=== PATIENT | male | born 2000 | race Caucasian/White ===

== ENCOUNTER 2018-05-30 11:06 | Emergency (ER) | payer SELFPAY ==
[~2018-05-30] VITALS: Ht 177.8 cm; Wt 92.5 kg
[2018-05-30] MEDS ORDERED: ONDANSETRON ODT 4 MG TAB.RAPDIS ONE (12:02)
--- NOTE | 2018-05-30 12:18 | PHYS DOC ---
Past History Past Medical History: No Pertinent History Past Surgical History: Other Alcohol Use: None Drug Use: None Adult General Chief Complaint Chief Complaint: LACERATION/AVULSION HPI HPI 18-year-old male presents with right leg laceration. The patient was working and carrying a piece of metal when it caught on the doorway to see the metal and lacerated his right lateral leg. The patient noticed that it was deep enough to need stitches. It is 6 cm in length and linear. Patient denies any other injuries. His last tetanus was 2012. Review of Systems Review of Systems Constitutional: Denies fever or chills [] Eyes: Denies change in visual acuity, redness, or eye pain [] HENT: Denies nasal congestion or sore throat [] Respiratory: Denies cough or shortness of breath [] Cardiovascular: No additional information not addressed in HPI [] GI: Denies abdominal pain, nausea, vomiting, bloody stools or diarrhea [] : Denies dysuria or hematuria [] Musculoskeletal: Denies back pain or joint pain [] Integument: Laceration[] Neurologic: Denies headache, focal weakness or sensory changes [] Endocrine: Denies polyuria or polydipsia [] All other systems were reviewed and found to be within normal limits, except as documented in this note. Current Medications Current Medications Current Medications Medications (Trade) Dose Ordered Sig/Fletcher Start Time Stop Time Status Last Admin Dose Admin Diphtheria/ Tetanus/Acell Pertussis (Boostrix) 0.5 ml ONCE ONCE 05/30/18 12:30 05/30/18 12:31 Ondansetron HCl (Zofran Odt) 4 mg 1X ONCE 05/30/18 12:30 05/30/18 12:31 Allergies Allergies Allergies Coded Allergies Type Severity Reaction Last Updated Verified No Known Drug Allergies 05/30/18 No Physical Exam Physical Exam Constitutional: Well developed, well nourished, no acute distress, non-toxic appearance. [] HENT: Normocephalic, atraumatic, bilateral external ears normal, oropharynx moist, no oral exudates, nose normal. [] Eyes: PERRLA, EOMI, conjunctiva normal, no discharge. [] Neck: Normal range of motion, no tenderness, supple, no stridor. [] Cardiovascular:Heart rate regular rhythm, no murmur [] Lungs & Thorax: Bilateral breath sounds clear to auscultation [] Abdomen: Bowel sounds normal, soft, no tenderness, no masses, no pulsatile masses. [] Skin: 6 cm linear laceration of the lateral right leg[] Back: No tenderness, no CVA tenderness. [] Extremities: No tenderness, no cyanosis, no clubbing, ROM intact, no edema. [] Neurologic: Alert and oriented X 3, normal motor function, normal sensory function, no focal deficits noted. [] Psychologic: Affect normal, judgement normal, mood normal. [] Current Patient Data Vital Signs Vital Signs Date Time Temp Pulse Resp B/P (MAP) Pulse Ox O2 Delivery O2 Flow Rate FiO2 05/30/18 11:15 97.8 111 22 95 Room Air EKG EKG [] Radiology/Procedures Radiology/Procedures [] Course & Med Decision Making Course & Med Decision Making Pertinent Labs and Imaging studies reviewed. (See chart for details) Was able to repair the patient's laceration. See laceration note for more details. He was given a tetanus shot in the ED. He is stable for discharge at this time. [] Dragon Disclaimer Dragon Disclaimer This electronic medical record was generated, in whole or in part, using a voice recognition dictation system. Laceration Repair Lac Repair Indication: []6 cm linear laceration of the right lateral leg. Procedure: I obtained verbal consent from the patient to repair his laceration with sutures. There was thoroughly cleansed with saline. No foreign bodies were found. The area was numbed with 1% lidocaine with epinephrine. A total of 3 mL was used. Once good anesthesia was achieved I repaired the laceration with 5 3- 0 Ethilon sutures in an interrupted fashion. There is good skin approximation. Bleeding was controlled. Wound was covered with a clean dry dressing. Total repaired wound length: [6 cm. Other Items: [None The patient tolerated the procedure well. Complications: [None. Departure Departure: Impression: Primary Impression: Laceration of right lower extremity Disposition: 01 HOME, SELF-CARE Condition: STABLE Referrals: PCP,NO (PCP) Patient Instructions: Laceration Care, Adult, [id number] Problem Qualifiers Primary Impression: Laceration of right lower extremity Encounter type: initial encounter Qualified Codes: S81.811A - Laceration without foreign body, right lower leg, initial encounter EDEL CONNOLLY DO May 30, 2018 12:18
[2018-05-30 12:30] VITALS: BP 132/64
[2018-05-30] MEDS ORDERED: ONDANSETRON ODT 4 MG TAB.RAPDIS PO ONE (12:30)
[2018-05-30] MEDS ORDERED: DIPHTH,PERTUSS(ACELL),TET TOX 0.5 ML DISP.SYRIN. VAX IM ONE (12:30)
== END 2018-05-30 12:30 | disposition home or self-care (01) ==
LOC: ER 11:06
DX: S81.811A Laceration without foreign body, right lower leg, initial encounter (principal); W26.8XXA Contact with other sharp object(s), not elsewhere classified, initial encounter; Y93.89 Activity, other specified; Y92.89 Other specified places as the place of occurrence of the external cause; Y99.8 Other external cause status
CPT/HCPCS: 12002; 90471; 90715; 99283; Q0162